=== PATIENT | male | born 1980 | race Two or more races ===

== ENCOUNTER 2023-05-23 19:54 | Inpatient (IN) | payer OTHER ==
[2023-05-23 20:20] VITALS: BMI 26.6
[2023-05-23] MEDS ORDERED: NALOXONE HCL 0.4 MG/ML VIAL IM PRN (21:57)
[2023-05-23] MEDS ORDERED: BENZOCAINE/MENTHOL (CHLORASEPTIC ) LOZENGE MM PRN (21:57)
[2023-05-23] MEDS ORDERED: NALOXONE HCL (KLOXXADO) 8 MG SPRAY NS PRN (21:57)
[2023-05-23] MEDS ORDERED: guaiFENesin 600 MG TABLET.ER (FP) PO PRN (21:57)
[2023-05-23] MEDS ORDERED: POLYETHYLENE GLYCOL (HEALTHYLAX) 3350 17 GM PACKET PO PRN (21:57)
[2023-05-23] MEDS ORDERED: BENZONATATE 200 MG CAPSULE PO PRN (21:57)
[2023-05-23] MEDS ORDERED: MAG HYDROX/AL HYDROX/SIMETH 30 ML UNIT-DOSE CUP PO PRN (21:57)
[2023-05-23] MEDS ORDERED: LOPERAMIDE HCL 2 MG CAPSULE PO PRN (21:57)
[2023-05-24] MEDS: MAGNESIUM HYDROX 2400MG/30ML ORAL SUSPENSION 30 ML CUP PO PRN (01:43)
[2023-05-24] MEDS: THIAMINE HCL 100 MG TABLET (FP) PO SCH (01:45)
[2023-05-24] MEDS: MELATONIN 5 MG TABLETS PO SCH ×2 (01:45→21:08)
[2023-05-24] MEDS: hydrOXYzine PAMOATE 25 MG CAPSULE (FP) PO PRN (05:56)
[2023-05-24] MEDS: IBUPROFEN 600 MG TABLET (FP) PO PRN (10:28)
[2023-05-24] MEDS: NICOTINE POLACRILEX 4 MG GUM BUC PRN (10:30)
[2023-05-24] MEDS: NICOTINE 21 MG/24 HOURS TOPICAL PATCH TD SCH (10:30)
[2023-05-24] MEDS: PRENATAL VITAMINS W/ FOLIC ACID TABLET (FP) PO SCH (10:30)
[2023-05-24] MEDS: ACETAMINOPHEN 325 MG TABLET (FP) PO PRN (11:26)
[2023-05-24 11:38] LABS: HEMATOCRIT 43.9 % (35.4-49); HEMOGLOBIN 15.1 GM/dL (11.7-16.9); MCH 34.1 pg (25.7-33.7); MCHC 34.4 g/dl (32.0-35.9); MEAN CELL VOLUME 99.2 fl (80-96); MEAN PLT VOLUME 9.8 fl (7.5-11.1); PLATELET COUNT 181 10^3/uL (134-434); RBC 4.42 M/mm3 (4.00-5.60); RDW 13.6 % (11.9-15.9); WHITE BLOOD COUNT 5.3 K/mm3 (4.0-10.0)
[2023-05-24 11:39] LABS: CHLORIDE 105 mmol/L (98-107); POTASSIUM 4.6 mmol/L (3.5-5.1); SODIUM 139 mmol/L (136-145)
[2023-05-24 11:49] LABS: ANION GAP 3 mmol/L (4-13); BLOOD UREA NITROGEN 13.8 mg/dL (7-18); CALCIUM 8.8 mg/dL (8.5-10.1); CO2 31 mmol/L (21-32); GLUCOSE,RANDOM 54 mg/dL (74-106)
[2023-05-24 11:50] LABS: ALBUMIN 3.8 g/dl (3.4-5.0)
[2023-05-24 11:52] LABS: CREATININE 0.9 mg/dL (0.55-1.3); SGPT/ALT 35 U/L (13-61)
[2023-05-24 11:53] LABS: SGOT/AST 46 U/L (15-37)
[2023-05-24 11:54] LABS: BILIRUBIN,TOTAL 0.5 mg/dL (0.2-1); TOT PROT 7.2 g/dl (6.4-8.2)
[2023-05-24 11:55] LABS: ALK PHOS 92 U/L (45-117)
[2023-05-24] MEDS ORDERED: ONDANSETRON *ODT* 4 MG TABLET SL PRN (15:03)
[2023-05-24] MEDS ORDERED: AMMONIUM LACTATE 12% LOTION 225 GM BOTTLE TP PRN (15:03)
[2023-05-24] MEDS ORDERED: BACLOFEN 10 MG TABLET (FP) PO PRN (15:03)
[2023-05-24] MEDS: METHOCARBAMOL 500 MG TABLET PO PRN (21:08)
[2023-05-25] MEDS: NALTREXONE HCL 50 MG TABLET PO ONE (14:21)
[2023-05-25] MEDS: IBUPROFEN 400 MG TABLET (FP) PO PRN (21:34)
[2023-05-25] MEDS: SUVOREXANT 10 MG TABLET PO PRN (21:35)
[2023-05-25] MEDS: LACTULOSE 20 GM/30 ML UDC (FOR ORAL USE ONLY) PO SCH (21:35)
[2023-05-26] MEDS: NALTREXONE HCL 50 MG TABLET PO SCH (09:49)
[2023-05-27 15:49] LABS: PH,URINE 6.5 (5.0-8.0); URINE APPEARANCE CLEAR; URINE BILIRUBIN NEGATIVE (NEGATIVE); URINE COLOR YELLOW; URINE GLUCOSE (UA) NEGATIVE (NEGATIVE); URINE KETONE NEGATIVE (NEGATIVE); URINE LEUK ESTERASE NEGATIVE (NEGATIVE); URINE NITRITE NEGATIVE (NEGATIVE); URINE PROTEIN NEGATIVE (NEGATIVE); URINE UROBILINOGEN 0.2 mg/dL (0.2-1.0)
[2023-05-27] MEDS: SUVOREXANT 10 MG TABLET PO PRN (21:32)
[2023-05-28] MEDS: hydrOXYzine PAMOATE 25 MG CAPSULE (FP) PO PRN (15:30)
[2023-05-29] MEDS: ARIPiprazole 2 MG TABLET PO SCH (11:21)
[2023-05-31] MEDS: SUVOREXANT 10 MG TABLET PO PRN (21:31)
[2023-06-01 07:14] VITALS: TEMP 97.8
[2023-06-01] MEDS: RIFAXIMIN 550 MG TABLET PO SCH (21:19)
[2023-06-02 08:53] VITALS: BP 101/68; PULSE 98; RESP 16
== END 2023-06-02 13:58 | disposition left against medical advice (07) | DRG 770 ==
LOC: YASAS 19:54 → Y3NR 05-24 01:10 → Y3W 05-24 11:12
PROVIDERS: ADMIT Allergy & Immunology; ATTEND Psychiatry & Neurology Pain Medicine
PROC: HZ42ZZZ Group Counseling for Substance Abuse Treatment, Cognitive-Behavioral (ICD-10-PCS; principal; 2023-05-24)
DX: F10.20 Alcohol dependence, uncomplicated (principal); F13.20 Sedative, hypnotic or anxiolytic dependence, uncomplicated; F12.20 Cannabis dependence, uncomplicated; F17.210 Nicotine dependence, cigarettes, uncomplicated; F10.280 Alcohol dependence with alcohol-induced anxiety disorder; F10.282 Alcohol dependence with alcohol-induced sleep disorder; E72.20 Disorder of urea cycle metabolism, unspecified; M62.838 Other muscle spasm; F91.8 Other conduct disorders; Z91.199 Patient's noncompliance with other medical treatment and regimen due to unspecified reason; Z86.11 Personal history of tuberculosis
CPT/HCPCS: 36415; 71046-TC-FY; 80053; 80307; 81003; 82140; 82652; 83735; 85027; 86780; 87635; 93005; 93010